=== PATIENT | female | born 1950 | race Caucasian/White ===

== ENCOUNTER → 2023-03-20 | Outpatient (CLI) | payer MEDICARE, OTHER, SELFPAY ==
--- NOTE | 2023-03-20 11:22 | NEURO ---
NCS and/or EMG Patient Report Ordering Doctor: Tyler Zuluaga DATE OF SERVICE: 03/20/23 Clinical Summary: 73 year old female presenting complaints of numbness/tingling and pain in the left hand. This EMG/NCS was performed to evaluate for left carpal tunnel syndrome. Nerve Conduction Studies Summary: The left median-D2 SNAP distal latency was prolonged with reduced amplitude. The left median motor conduction velocity was reduced in the forearm segment. Needle Examination Summary: There was a higher proportion of motor unit action potentials with reduced recruitment, increased amplitude, increased duration, and polyphasia in the left abductor pollicis brevis muscle. 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 Multi Select Codes Neurology Neurology Interp Codes: 75329-00 Musc test done w/n test comp (interp) (1) and 42770-30 Nrv cndj tst 5-6 studies (interp)
== END | disposition home or self-care (01) ==
LOC: PSN 10:44
PROVIDERS: PCP Family Medicine; Referring Provider Family Medicine; Visit Provider Family Medicine
DX: R20.2 Paresthesia of skin (principal); M79.642 Pain in left hand
CPT/HCPCS: 95886; 95909